=== PATIENT | male | born 1995 | race Caucasian/White ===

== ENCOUNTER 2023-02-24 02:32 | Day surgery (SDC) | payer OTHER, SELFPAY ==
[2023-02-12 13:24] VITALS: BMI 30.5
--- NOTE | 2023-02-21 15:15 | PM.HPGS ---
History of Present Illness History of Present Illness Consent: Risks, benefits, and alternatives have been discussed and questions answered. Patient agrees to proceed with procedure. Chief complaint: GERD without esophagitis,dysphagia, Narrative: Leroy Valdes is a 28 year old male who is undergoing EGD to investigate persistent symptoms that are thought to possibly be due to acid reflux. He had been taking omeprazole and now pantoprazole 40 mg b.i.d. as well as Pepcid. He has had epigastric pain which at times has been going to the emergency room. He has occasional dysphagia as well. He feels that food is getting stuck when he eats. Even liquids seem to get stuck. he has had a significant change in bowel movements. He has alternating diarrhea and constipation. Review of Systems Review of Systems: All systems reviewed & are unremarkable except as noted in HPI and below PMFSH Past Medical History Medical History Irritable bowel syndrome with alternating bowel habits Family History Family History Father Depression AA (alcohol abuse) Mother AA (alcohol abuse) Depression Asthma Diabetes mellitus Hypertension Heart disease Social History Social History Smoking packs per day: 1 Smoking cigarettes per day: 20.0 Years smoked: 13 Smoking pack-years: 13.00 Smoking status: Former smoker Tobacco type: cigarettes Second hand tobacco smoke exposure: No Alcohol intake: never Substance use: former Living arrangements: with family Gender identity (if verbalized by the patient): Male Meds Home Medications and Allergies Home Medications Medication Instructions Recorded Confirmed Type famotidine 20 mg tablet 20 mg PO DAILY 11/20/22 02/12/23 History pantoprazole 40 mg tablet,delayed 40 mg PO BID 1 month #60 tabs 11/20/22 02/12/23 Rx release amitriptyline 10 mg tablet 10 mg PO QHS 1 month #30 tabs 01/16/23 02/12/23 Rx albuterol sulfate 90 mcg/actuation 1 inhalation 02/12/23 History aerosol inhaler buspirone 15 mg tablet 15 mg PO BID 02/12/23 02/12/23 History fluticasone propionate 50 50 mcg intranasal DAILY 02/12/23 02/12/23 History mcg/actuation nasal spray,suspension Allergies Allergy/AdvReac Type Severity Reaction Status Date / Time amoxicillin Allergy Hives Verified 02/24/23 09:28 Exam Const: General: alert Orientation/consciousness: patient oriented x3 Resp: Auscultation: clear to auscultation bilaterally Cardio: Rhythm: regular rhythm GI: GI Palp: Yes Soft to palpation and No Tenderness to palpation present (GI) Neuro: General: patient oriented x3 Assessment and Plan Assessment and plan (1) Dysphagia: Code(s): R13.10 - Dysphagia, unspecified Status: Acute Assessment and Plan: EGD with possible biopsy or dilatation or cautery. (2) Change in bowel habits: Code(s): R19.4 - Change in bowel habit Status: Acute Assessment and Plan: Colonoscopy with possible biopsy or polypectomy or cautery or injection of substances.
[2023-02-24 09:29] VITALS: BP 137/105; PULSE 88; RESP 18; TEMP 36.2; O2SAT 100
[2023-02-24] MEDS: LACTATED RINGERS 1,000 ML 150 ML IV CONT (09:45)
--- NOTE | 2023-02-24 10:22 | WPDANESEPPF ---
Anes - Initial Pre Proc Eval Procedure: Operation Date: 02/24/23 10:45 Proposed Procedures p Esophagogastroduodenoscopy & Colonoscopy - Rod Rothman MD Date/Time: 02/24/23 10:22 Surgeon: Rod Rothman MD Pre Op Diagnosis: GERD without esophagitis,dysphagia, Patient Data Age: 28 Gender: M Height: 1.83 m Weight: 109.6 kg Last Vital Signs Temp 97.1 F L 02/24/23 09:29 Pulse 88 02/24/23 09:29 Resp 18 02/24/23 09:29 BP 137/105 H 02/24/23 09:29 Pulse Ox 100 02/24/23 09:29 O2 Del Method Room Air 02/24/23 09:29 Allergies Allergy/AdvReac Type Severity Reaction Status Date / Time amoxicillin Allergy Hives Verified 02/24/23 09:28 Home Medications Medication Instructions Recorded Confirmed Type famotidine 20 mg tablet 20 mg PO DAILY 11/20/22 02/12/23 History pantoprazole 40 mg tablet,delayed 40 mg PO BID 1 month #60 tabs 11/20/22 02/12/23 Rx release amitriptyline 10 mg tablet 10 mg PO QHS 1 month #30 tabs 01/16/23 02/12/23 Rx albuterol sulfate 90 mcg/actuation 1 inhalation 02/12/23 History aerosol inhaler buspirone 15 mg tablet 15 mg PO BID 02/12/23 02/12/23 History fluticasone propionate 50 50 mcg intranasal DAILY 02/12/23 02/12/23 History mcg/actuation nasal spray,suspension Patient hx anesthesia problems: none Family hx anesthesia problems: none Results Review: All pre-operative results and documents have been reviewed as part of the pre-operative evaluation. [facility] Past Medical History Medical History Irritable bowel syndrome with alternating bowel habits Family History Family History Father Depression AA (alcohol abuse) Mother AA (alcohol abuse) Depression Asthma Diabetes mellitus Hypertension Heart disease Social History Social History Smoking packs per day: 1 Smoking cigarettes per day: 20.0 Years smoked: 13 Smoking pack-years: 13.00 Smoking status: Former smoker Tobacco type: cigarettes Second hand tobacco smoke exposure: No Alcohol intake: never Substance use: former Living arrangements: with family Gender identity (if verbalized by the patient): Male Anes - Eval Final PreProcedure Day of Procedure 02/24/23 10:22 Patient weight: normal Heart: regular rate and rhythm Lungs: clear to auscultation Airway: Mallampati scale class II Neurological: alert and oriented Last oral intake: >/= 8 hours ASA classification: II Emergent: no Anesthetic plan: proceed Anesthesia type and monitoring: general GIVS and standard monitoring Results Review: All pre-operative results and documents have been reviewed as part of the pre-operative evaluation. Informed Consent: The patient's anesthetic plan and its attendant risks and benefits were discussed with the patient/family/POA. Questions were solicited and answers provided to the satisfaction of the patient/family/POA.
--- NOTE | 2023-02-24 11:04 | SUR.OPER ---
egd ended at 1049 and colonoscopy started at 1058
[2023-02-24 11:12] VITALS: BP 118/67; PULSE 80; RESP 20; O2SAT 99
[2023-02-24 11:22] VITALS: BP 119/78; PULSE 72; RESP 18; O2SAT 100
[2023-02-24 11:32] VITALS: BP 116/75; PULSE 84; RESP 18; O2SAT 100
== END 2023-02-24 11:45 | disposition home or self-care (01) ==
PROVIDERS: PCP Nurse Practitioner Family; Visit Provider Internal Medicine Gastroenterology
PROC: 0DJ08ZZ Inspection of Upper Intestinal Tract, Via Natural or Artificial Opening Endoscopic (ICD-10-PCS; CPT 43235; principal; 2023-02-24 10:45)
DX: K52.832 Lymphocytic colitis (principal); K21.00 Gastro-esophageal reflux disease with esophagitis, without bleeding; K29.00 Acute gastritis without bleeding; Z87.891 Personal history of nicotine dependence; Z79.51 Long term (current) use of inhaled steroids
CPT/HCPCS: 43239; 45380; 87081; 88305; J2001; J2250; J2704; J7120